=== PATIENT | female | born 1985 | race African-American/Black ===

== ENCOUNTER 2018-06-19 04:25 | Inpatient (IN) | payer MEDICAID ==
[~2018-06-19] VITALS: Ht 157.5 cm; Wt 72.6 kg
[2018-06-19] MEDS ORDERED: PREN-142 MT (05:05)
[2018-06-19] MEDS ORDERED: DEXT 5%/LR + PITOCIN 20UNITS/L 1,000 ML IV SCH ×2 (05:05→21:32)
[2018-06-19] MEDS ORDERED: METHYLERGONOVINE MALEATE 0.2 MG/ML IM PRN (05:15)
[2018-06-19] MEDS ORDERED: LIDOCAINE HCL 1% 20ML VIAL (Pyxis) INJ INFIL SCH (05:15)
[2018-06-19] MEDS ORDERED: NALOXONE HCL 0.4 MG/ML 1ML VIAL IM PRN (05:15)
[2018-06-19] MEDS ORDERED: CARBOPROST TROMETHAMINE 250 MCG/ML AMPUL IM PRN (05:15)
[2018-06-19] MEDS ORDERED: BUTORPHANOL TARTRATE 2 MG/ML VIAL IV PRN (05:15)
[2018-06-19] MEDS ORDERED: PENICILLIN G POTASSIUM 5 MMU in DEXT 5% WATER 100 ML IV SCH (05:30)
[2018-06-19] MEDS: LACTATED RINGERS 1,000 ML IV SCH ×4 (05:57→18:41)
[2018-06-19 06:14] LABS: BASOPHILS % 0.4 % (0.0-2.0); LYMPHOCYTES % 26.1 % (20.0-50.0); MEAN CORPUSCULAR HEMOGLOBIN 31.5 pg (28.0-32.0); MEAN CORPUSCULAR VOLUME 91.7 fL (81.0-99.0); MEAN PLATELET VOLUME 8.8 fl (7.4-10.4); MONOCYTES % 8.9 % (2.0-8.0); NEUTROPHILS % 63.6 % (40.0-76.0); PLATELET 172 x1000/uL (130-400); RED BLOOD CELL COUNT 4.14 mill/uL (4.2-5.4); RED CELL DISTRIBUTION WIDTH 13.5 % (11.6-14.6)
[2018-06-19 06:16] LABS: PARTIAL THROMBOPLASTIN TIME 26.3 sec (23.4-31.0); PROTHROMBIN TIME 9.7 sec (9.1-11.1)
[2018-06-19 06:36] LABS: CLARITY URINE TURBID (CLEAR); COLOR URINE YELLOW (YELLOW); KETONES URINE NEGATIVE (NEGATIVE); LEUKOCYTE ESTERASE URINE NEGATIVE (NEGATIVE); NITRITE URINE NEGATIVE (NEGATIVE); OCCULT BLOOD URINE 2+ (NEGATIVE); PROTEIN URINE 2+ (NEGATIVE); SPECIFIC GRAVITY URINE 1.006 (1.005-1.030); UROBILINOGEN URINE 0.2 E.U./dL (0.2-1.0)
[2018-06-19 06:51] LABS: HEPATITIS B SURFACE ANTIGEN NEGATIVE
[2018-06-19 06:57] LABS: *BARBITURATES SCREEN URINE NEGATIVE (NEGATIVE); *COCAINE SCREEN URINE NEGATIVE (NEGATIVE); CANNABINOID URINE SCREEN NEGATIVE (NEGATIVE); METHADONE URINE SCREEN NEGATIVE (NEGATIVE); OPIATES URINE SCREEN NEGATIVE (NEGATIVE); PHENCYCLIDINE URINE SCREEN NEGATIVE (NEGATIVE)
[2018-06-19 06:58] LABS: *AMPHETAMINES SCREEN URINE NEGATIVE (NEGATIVE); *BENZODIAZEPINES SCREEN URINE NEGATIVE (NEGATIVE)
[2018-06-19] MEDS ORDERED: BUPIVACAINE HCL/PF 0.25% (2.5MG/ML) 10ML ONE ×2 (07:32→16:59)
[2018-06-19] MEDS ORDERED: FENTANYL CITRATE/PF 50MCG/ML 5ML VIAL ONE ×2 (07:32→16:59)
[2018-06-19] MEDS ORDERED: NS EP ONE (07:32)
[2018-06-19] MEDS ORDERED: BUPIVACAINE HCL EP ONE (07:32)
[2018-06-19] MEDS: PENICILLIN G POTASSIUM 2.5 MMU in DEXTROSE 5% WATER 50 ML IV SCH ×3 (10:03→18:40)
[2018-06-19] MEDS: MISOPROSTOL 100MCG TABLET PO SCH ×2 (10:55→14:46)
[2018-06-19] MEDS ORDERED: BUPIVACAINE HCL/NS/PF EPIDURAL 100 ML EP ONE (16:59)
[2018-06-19] MEDS ORDERED: BUPIVACAINE HCL/NS/PF EPIDURAL 100 ML EP SCH (18:30)
[2018-06-19] MEDS ORDERED: DIPHENHYDRAMINE 25MG CAPSULE PO PRN (21:45)
[2018-06-19] MEDS ORDERED: ACETAMINOPHEN WITH CODEINE 300/30MG TABLET PO PRN (21:45)
[2018-06-19] MEDS ORDERED: INFLUENZA VIRUS VACCINE(AFLURIA) 0.5ML SYR IM ONE (21:45)
[2018-06-19] MEDS ORDERED: BENZOCAINE/LANOLIN/ALOE VERA SPRAY TOP PRN (21:45)
[2018-06-19] MEDS ORDERED: LANOLIN OINT 0.25 GM TUBE TOP PRN (21:45)
[2018-06-19] MEDS ORDERED: BISACODYL 10MG SUPP PR PRN (21:45)
[2018-06-19] MEDS ORDERED: GLYCERIN/WITCH HAZEL LEAF MEDICATED PAD TOP PRN (21:45)
[2018-06-19] MEDS ORDERED: TETANUS, DIPHTHERIA, PERTUSSIS VAC/PF 0.5ML (>7YR OLD) IM ONE (21:45)
[2018-06-19] MEDS ORDERED: RHO(D) IMMUNE GLOBULIN 300 MCG/SYR IM PRN (21:45)
[2018-06-19] MEDS ORDERED: HEMORRHOIDAL SUPP PR PRN (21:45)
[2018-06-19 23:43] VITALS: BP 112/63
[2018-06-19] MEDS: IBUPROFEN 400MG TABLET PO PRN (23:56)
[2018-06-20 00:15] VITALS: BP 121/75
[2018-06-20 04:00] VITALS: BP 104/60
[2018-06-20 08:10] VITALS: BP 101/63
[2018-06-20 08:30] LABS: BASOPHILS % 0.2 % (0.0-2.0); EOSINOPHILS % 0.5 % (0.0-5.0); HEMATOCRIT. 38.1 % (36.0-48.0); HEMOGLOBIN. 12.9 g/dL (12.0-16.0); LYMPHOCYTES % 21.2 % (20.0-50.0); MEAN CORPUSCULAR HEMOGLOBIN 31.3 pg (28.0-32.0); MEAN CORPUSCULAR VOLUME 92.3 fL (81.0-99.0); MEAN PLATELET VOLUME 9.6 fl (7.4-10.4); NEUTROPHILS % 70.1 % (40.0-76.0); PLATELET 147 x1000/uL (130-400); RED BLOOD CELL COUNT 4.13 mill/uL (4.2-5.4); RED CELL DISTRIBUTION WIDTH 13.5 % (11.6-14.6)
[2018-06-20] MEDS: PRENATAL VIT/FE FUMARATE/FA TABLET PO SCH (09:00)
[2018-06-20] MEDS: FERROUS SULFATE 325MG TABLET PO SCH ×2 (09:08→16:27)
[2018-06-20] MEDS: IBUPROFEN 400MG TABLET PO PRN (09:14)
[2018-06-20] MEDS: ACETAMINOPHEN WITH CODEINE 300/30MG TABLET PO PRN ×2 (16:28→20:45)
[2018-06-20 16:30] VITALS: BP 119/79
[2018-06-20 20:00] VITALS: BP 119/73
[2018-06-20] MEDS ORDERED: DOCUSATE SODIUM 100MG CAPSULE PO SCH (21:00)
[2018-06-21 04:00] VITALS: BP 122/78
[2018-06-21] MEDS: ACETAMINOPHEN WITH CODEINE 300/30MG TABLET PO PRN ×2 (05:02→11:46)
[2018-06-21] MEDS: PRENATAL VIT/FE FUMARATE/FA TABLET PO SCH (08:44)
[2018-06-21] MEDS: FERROUS SULFATE 325MG TABLET PO SCH (08:44)
[2018-06-21 11:46] VITALS: BP 122/78
== END 2018-06-21 15:00 | disposition home or self-care (01) | DRG 560 ==
LOC: 8 EST LDRP 04:25 → OBSVTOIN 19:22 → 8EST 23:06
PROVIDERS: ADMIT Obstetrics & Gynecology; ATTEND Obstetrics & Gynecology
PROC: 3E0R3BZ Introduction of Anesthetic Agent into Spinal Canal, Percutaneous Approach (ICD-10-PCS; principal; 2018-06-19)
PROC: 10E0XZZ Delivery of Products of Conception, External Approach (ICD-10-PCS; 2018-06-19)
PROC: 00HU33Z Insertion of Infusion Device into Spinal Canal, Percutaneous Approach (ICD-10-PCS; 2018-06-19)
DX: O34.211 Maternal care for low transverse scar from previous cesarean delivery (principal); O99.324 Drug use complicating childbirth; O99.02 Anemia complicating childbirth; Z37.0 Single live birth; Z3A.38 38 weeks gestation of pregnancy; O99.334 Smoking (tobacco) complicating childbirth; F17.200 Nicotine dependence, unspecified, uncomplicated; F12.10 Cannabis abuse, uncomplicated; D64.9 Anemia, unspecified; O09.523 Supervision of elderly multigravida, third trimester
CPT/HCPCS: 36415; 80305; 86592; 86703; 86762; 86850; 86870; 86900; 87340; 99281; G0378; J2540; J2590; J3010; J3490; J7060; J7120; A4315

== ENCOUNTER 2019-04-14 18:22 | Emergency (ER) | payer MEDICAID ==
[~2019-04-14] VITALS: Ht 162.6 cm; Wt 50.0 kg
[2019-04-14] MEDS ORDERED: SODIUM CHLORIDE 0.9% 1,000 ML IV ONE (18:37)
[2019-04-14 18:57] LABS: BASOPHILS % 0.6 % (0.0-2.0); EOSINOPHILS % 1.9 % (0.0-5.0); HEMATOCRIT. 35.4 % (36.0-48.0); HEMOGLOBIN. 12.1 g/dL (12.0-16.0); LYMPHOCYTES % 44.7 % (20.0-50.0); MEAN CORPUSCULAR HEMOGLOBIN 30.6 pg (28.0-32.0); MEAN CORPUSCULAR VOLUME 89.3 fL (81.0-99.0); MEAN PLATELET VOLUME 7.8 fl (7.4-10.4); MONOCYTES % 5.3 % (2.0-8.0); NEUTROPHILS % 47.5 % (40.0-76.0); PLATELET 223 x1000/uL (130-400); RED BLOOD CELL COUNT 3.96 mill/uL (4.2-5.4); RED CELL DISTRIBUTION WIDTH 13.3 % (11.6-14.6)
[2019-04-14 19:03] LABS: CHLORIDE 104 mEq/L (98-107)
[2019-04-14 19:08] LABS: ETHANOL BLOOD < 10 mg/dL
[2019-04-14 19:40] LABS: HCG SCREEN NEGATIVE
[2019-04-14 21:00] VITALS: BP 121/76
[2019-04-14 21:01] LABS: *BENZODIAZEPINES SCREEN URINE NEGATIVE (NEGATIVE)
[2019-04-14 21:02] LABS: *AMPHETAMINES SCREEN URINE NEGATIVE (NEGATIVE); *BARBITURATES SCREEN URINE NEGATIVE (NEGATIVE); *COCAINE SCREEN URINE NEGATIVE (NEGATIVE); METHADONE URINE SCREEN NEGATIVE (NEGATIVE); OPIATES URINE SCREEN NEGATIVE (NEGATIVE); PHENCYCLIDINE URINE SCREEN NEGATIVE (NEGATIVE)
[2019-04-14 21:04] LABS: CANNABINOID URINE SCREEN PRESUMTIVE POSITIVE (NEGATIVE)
== END 2019-04-14 21:00 | disposition home or self-care (01) ==
LOC: ER 18:22
DX: T40.7X1A Poisoning by cannabis (derivatives), accidental (unintentional), initial encounter (principal); R42 Dizziness and giddiness; R00.2 Palpitations; R07.89 Other chest pain; F12.129 Cannabis abuse with intoxication, unspecified; Y92.89 Other specified places as the place of occurrence of the external cause
CPT/HCPCS: 36415; 80053; 80305; 80320; 84703; 85025; 93005; 96360; 96361; 99284; J7030; G0480